=== PATIENT | female | born 2000 | race African-American/Black ===

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

== ENCOUNTER 2020-04-07 13:52 | Inpatient (IN) ==
[2020-04-07 14:32] LABS: Bacteria,Urine Few per hpf (None-Few); Bilirubin,Urine Negative (Negative); Blood,Urine Negative (Negative); Clarity,Urine Turbid (Clear); Color,Urine Yellow (Yellow); Glucose,Urine (UA) Normal (Normal); Ketones,Urine 20 mg/dL (Negative); Leukocyte Esterase,Urine Moderate (Negative); Mucus,Urine Many per lpf (None-Few); Nitrite,Urine Negative (Negative); Protein,Urine 30 mg/dL (Neg-Trace); RBC,Urine 0-3 per hpf (0-3); Specific Gravity,Urine > 1.030 (1.010-1.025); Squamous Epithelial Cell,Urine Moderate per hpf (None-Few); Urobilinogen,Urine Normal (Normal)
[2020-04-07 14:44] LABS: Amphetamine Screen,Urine Negative ng/mL (Cutoff=1000); Barbiturate Screen,Urine Negative ng/mL (Cutoff=200); Benzodiazepines Screen,Urine Negative ng/mL (Cutoff=200); Cannabinoid Screen,Urine Negative ng/mL (Cutoff = 50); Cocaine Screen,Urine Negative ng/mL (Cutoff= 300); Opiate Screen,Urine Negative ng/mL (Cutoff=300); Phencyclidine Screen,Urine Negative ng/mL (Cutoff=25)
[2020-04-07 14:50] LABS: Basophils % 0.8 %; Eosinophils # 0.1 K/mcL (0.0-0.6); Eosinophils % 1.9 %; Hematocrit 38.2 % (35.3-44.9); Hemoglobin 12.1 g/dL (11.5-15.4); Immature Granulocytes % 0.4 % (0-4); Lymphocytes # 1.1 K/mcL (0.6-4.6); Lymphocytes % 40.3 %; Mean Corpuscular HGB Conc 31.7 g/dL (31.6-35.5); Mean Corpuscular Hemoglobin 28.2 pg (28.0-33.3); Mean Platelet Volume 10.6 fL (9.4-12.4); Monocytes # 0.1 K/mcL (0.0-1.3); Monocytes % 5.3 %; Neutrophils # 1.4 K/mcL (1.6-8.9); Platelet Count 225 K/mcL (140-400); Red Blood Count 4.29 M/mcL (3.82-4.97); Segmented Neutrophils % 51.3 %; White Blood Count 2.6 K/mcL (4.3-11.1)
[2020-04-07 14:59] LABS: Acetaminophen < 10 mcg/mL (10-20); BUN/Creatinine Ratio 12 (6-26); Blood Urea Nitrogen 8 mg/dL (6-20); Carbon Dioxide 25 mEq/L (23-29); Chloride 106 mEq/L (98-107); Chol/HDL Ratio 4.3 (0-4.9); Cholesterol 183 mg/dL (< 200); Ethanol < 10 mg/dL (Less than 10); Glucose 88 mg/dL (70-105); HDL Cholesterol 43 mg/dL (40-59); LDL Cholesterol,Calculated 127 mg/dL (< 100); Osmolality,Calculated 286 (280-300); Potassium 3.9 mEq/L (3.5-5.1); Salicylate < 2.5 mg/dL (15.0-30.0); Sodium 139 mEq/L (136-145); Triglycerides 63 mg/dL (< 150); eGFR For African Americans > 60; eGFR For Non-African Americans > 60
[2020-04-07] MEDS ORDERED: cephALEXin 500 MG CAPSULE PO STA (15:21)
[2020-04-07 15:55] LABS: Estimated Average Glucose 123 mg/dl
[2020-04-07] MEDS ORDERED: *HR* LORazepam 2 MG/ML VIAL IM PRN (16:37)
[2020-04-07] MEDS ORDERED: hydrOXYzine pamoate 25 MG CAPSULE PO PRN (16:37)
[2020-04-07] MEDS ORDERED: Acetaminophen 325 MG TABLET PO PRN (16:37)
[2020-04-07] MEDS ORDERED: Mag Hydrox/Al Hydrox/Simeth 30 ML UDC PO PRN (16:37)
[2020-04-07] MEDS ORDERED: traZODone 50 MG TABLET PO PRN (16:37)
[2020-04-07] MEDS ORDERED: Haloperidol Lactate 5 MG/ML VIAL IM PRN (16:37)
[2020-04-07] MEDS ORDERED: MOM Conc 10 ML UD.LIQ PO PRN (16:37)
[2020-04-07] MEDS ORDERED: *HR* LORazepam 1 MG TABLET PO PRN (16:37)
[2020-04-07] MEDS ORDERED: haloperidoL 5 MG TABLET PO PRN (16:37)
[2020-04-07] MEDS: cephALEXin 500 MG CAPSULE PO SCH (20:54)
[2020-04-07] MEDS: QUEtiapine Fumarate 25 MG TABLET PO PRN (20:54)
[2020-04-08] MEDS: cephALEXin 500 MG CAPSULE PO SCH ×2 (08:49→20:04)
[2020-04-08] MEDS: BuPROPion XL (24 HR) 150 MG TABLET PO SCH (11:34)
[2020-04-08] MEDS: QUEtiapine Fumarate 25 MG TABLET PO SCH (20:03)
[2020-04-09] MEDS: cephALEXin 500 MG CAPSULE PO SCH ×2 (08:46→20:41)
[2020-04-09] MEDS: BuPROPion XL (24 HR) 150 MG TABLET PO SCH (08:47)
[2020-04-09] MEDS: QUEtiapine Fumarate 25 MG TABLET PO SCH (20:41)
[2020-04-09] MEDS: QUEtiapine Fumarate 25 MG TABLET PO PRN (21:52)
[2020-04-10 07:47] VITALS: BP 107/73
[2020-04-10] MEDS: cephALEXin 500 MG CAPSULE PO SCH (08:28)
[2020-04-10] MEDS: BuPROPion XL (24 HR) 150 MG TABLET PO SCH (08:28)
== END 2020-04-10 13:15 | disposition home or self-care (01) | DRG 751 ==
LOC: EMEROOARM 13:52 → 1ANU 16:34
PROVIDERS: ADMIT Psychiatry & Neurology Psychiatry; ATTEND Psychiatry & Neurology Psychiatry

== ENCOUNTER 2021-06-22 22:59 | Observation (INO) ==
[2021-06-22] MEDS ORDERED: Ringers Solution, Lactated 1,000 ML IVC SCH (23:15)
[2021-06-23] MEDS ORDERED: Perflutren Lipid Microsphere 1.3 ML in 0.9 % Sodium Chloride 8.7 ML IVP PRN (09:18)
[2021-06-23 11:13] LABS: Amphetamine Screen,Urine Negative ng/mL (Cutoff=1000); Barbiturate Screen,Urine Negative ng/mL (Cutoff=200); Benzodiazepines Screen,Urine Negative ng/mL (Cutoff=200); Cannabinoid Screen,Urine Negative ng/mL (Cutoff = 50); Cocaine Screen,Urine Negative ng/mL (Cutoff= 300); Opiate Screen,Urine Negative ng/mL (Cutoff=300); Phencyclidine Screen,Urine Negative ng/mL (Cutoff=25)
[2021-06-23] MEDS ORDERED: Acetaminophen 325 MG TABLET PO PRN (20:03)
[2021-06-24 08:35] VITALS: BP 119/77; PULSE 100; TEMP 98.6; O2SAT 98
== END 2021-06-24 10:27 | disposition home or self-care (01) ==
LOC: 1NENULAB → 1NENUOBS 06-23 16:37 → 1NENUPED 06-23 21:35
PROVIDERS: ADMIT Advanced Practice Midwife; ATTEND Advanced Practice Midwife

== ENCOUNTER 2021-07-16 05:49 | Inpatient (IN) ==
[2021-07-16] MEDS ORDERED: EPHEDrine 50 MG/ML VIAL IVP PRN (06:54)
[2021-07-16] MEDS ORDERED: Epidural Premix (fent/bupiv) 110 ML EP SCH (07:00)
[2021-07-16] MEDS ORDERED: Famotidine 20 MG/2 ML VIAL IVP PRN (07:02)
[2021-07-16] MEDS ORDERED: Lidocaine 1% 20 ML MDV INFILT PRN (07:02)
[2021-07-16] MEDS ORDERED: Naloxone 0.4 MG/ML INJ IVP PRN (07:02)
[2021-07-16] MEDS ORDERED: *HR* Nalbuphine 10 MG/ML AMPUL IV PRN (07:02)
[2021-07-16] MEDS ORDERED: Metoclopramide 10 MG/2 ML VIAL IVP PRN (07:02)
[2021-07-16] MEDS ORDERED: Ondansetron 4 MG/2 ML VIAL IVP PRN (07:02)
[2021-07-16] MEDS ORDERED: Penicillin G Potassium 5,000,000 UNIT in 0.9 % Sodium Chloride Mini Bag 100 ML IVPB ONE (07:08)
[2021-07-16] MEDS ORDERED: Ringers Solution, Lactated 1,000 ML IVC SCH (07:15)
[2021-07-16 08:09] LABS: Influenza A PCR Negative (Negative); Influenza B PCR Negative (Negative); Resp. Syncytial Virus PCR Negative (Negative)
[2021-07-16 08:26] LABS: Basophils % 0.3 %; Eosinophils % 0.4 %; Hematocrit 34.8 % (35.3-44.9); Hemoglobin 10.9 g/dL (11.5-15.4); Immature Granulocytes % 1.6 % (0-4); Lymphocytes # 1.2 K/mcL (0.6-4.6); Mean Corpuscular HGB Conc 31.3 g/dL (31.6-35.5); Mean Corpuscular Hemoglobin 28.6 pg (28.0-33.3); Mean Platelet Volume 10.4 fL (9.4-12.4); Monocytes # 0.4 K/mcL (0.0-1.3); Monocytes % 5.7 %; Neutrophils # 5.6 K/mcL (1.6-8.9); Platelet Count 221 K/mcL (140-400); Red Blood Count 3.81 M/mcL (3.82-4.97); Red Cell Distribution Width 22.3 % (11.5-14.5); White Blood Count 7.4 K/mcL (4.3-11.1)
[2021-07-16 08:28] LABS: Mean Corpuscular Volume 91.3 fL (83.0-100.0)
[2021-07-16 08:45] LABS: SARS-CoV-2 by PCR (In House) Negative (Negative)
[2021-07-16] MEDS ORDERED: Oxytocin 20 units/ LR 1000 mL 20 UNIT/1,000 ML BAG IVC ONE ×2 (08:58→22:41)
[2021-07-16 10:16] LABS: Amphetamine Screen,Urine Negative ng/mL (Cutoff=1000); Barbiturate Screen,Urine Negative ng/mL (Cutoff=200); Benzodiazepines Screen,Urine Negative ng/mL (Cutoff=200); Cannabinoid Screen,Urine Negative ng/mL (Cutoff = 50); Cocaine Screen,Urine Negative ng/mL (Cutoff= 300); Opiate Screen,Urine Negative ng/mL (Cutoff=300); Phencyclidine Screen,Urine Negative ng/mL (Cutoff=25)
[2021-07-16] MEDS ORDERED: Ondansetron 4 MG/2 ML VIAL ONE (10:43)
[2021-07-16] MEDS: Penicillin G Potassium 2,500,000 UNIT in 0.9 % Sodium Chloride 100 ML IVPB SCH ×2 (15:02→18:49)
[2021-07-17] MEDS ORDERED: Lanolin 7 G OINT...G. TP PRN (01:01)
[2021-07-17] MEDS ORDERED: Measles/Mumps/Rubella Vacc 0.5 ML VIAL SQ PRN (01:01)
[2021-07-17] MEDS ORDERED: Oxytocin 20 units/ LR 1000 mL 20 UNIT/1,000 ML BAG IVC SCH (01:01)
[2021-07-17] MEDS ORDERED: Benzocaine/Menthol 56 GM AEROSOL SPRAY TP PRN (01:01)
[2021-07-17] MEDS ORDERED: Ondansetron ODT 4 MG TAB.RAPDIS SL PRN (01:01)
[2021-07-17] MEDS ORDERED: Rho Immune Globulin 1,500 UNIT SYRINGE IM PRN (01:01)
[2021-07-17] MEDS ORDERED: Oxytocin 20 units/ LR 1000 mL 20 UNIT/1,000 ML BAG IVC ONE (01:01)
[2021-07-17] MEDS: Acetaminophen 325 MG TABLET PO SCH ×3 (01:30→19:30)
[2021-07-17] MEDS: Ibuprofen 600 MG TABLET PO SCH ×3 (01:32→19:30)
[2021-07-17 03:08] LABS: Basophils % 0.1 %; Eosinophils % 0.2 %; Hematocrit 33.9 % (35.3-44.9); Hemoglobin 10.6 g/dL (11.5-15.4); Immature Granulocytes % 0.4 % (0-4); Lymphocytes % 9.8 %; Mean Corpuscular HGB Conc 31.3 g/dL (31.6-35.5); Mean Corpuscular Hemoglobin 28.6 pg (28.0-33.3); Mean Corpuscular Volume 91.4 fL (83.0-100.0); Mean Platelet Volume 10.3 fL (9.4-12.4); Monocytes # 0.6 K/mcL (0.0-1.3); Monocytes % 5.6 %; Neutrophils # 8.4 K/mcL (1.6-8.9); Platelet Count 230 K/mcL (140-400); Red Blood Count 3.71 M/mcL (3.82-4.97); Red Cell Distribution Width 22.1 % (11.5-14.5); Segmented Neutrophils % 83.9 %
[2021-07-17] MEDS: Prenatal Vit/FA 1 EACH TABLET PO SCH (08:38)
[2021-07-17] MEDS ORDERED: NON-FORMULARY MEDICATION 1 EACH EACH (Prenatal Vit No.129/Iron/Fa [Prenatal One Daily Tabl PO SCH (09:00)
[2021-07-18] MEDS: Acetaminophen 325 MG TABLET PO SCH (02:36)
[2021-07-18] MEDS: Ibuprofen 600 MG TABLET PO SCH ×2 (02:36→07:43)
[2021-07-18] MEDS: Prenatal Vit/FA 1 EACH TABLET PO SCH (07:43)
[2021-07-18] MEDS ORDERED: FLU Vac QV 21-22 (6Month+)/PF 0.5 ML SYRINGE IM ONE (08:03)
[2021-07-18 08:18] VITALS: BP 117/68; PULSE 79; TEMP 98.1; O2SAT 99
== END 2021-07-18 13:04 | disposition home or self-care (01) | DRG 560 ==
LOC: 1NENULAB 05:49 → 1NENUOBS 07-17 01:03
PROVIDERS: ADMIT Obstetrics & Gynecology; ATTEND Obstetrics & Gynecology